=== PATIENT | male | born 1970 | race Caucasian/White ===

== ENCOUNTER 2022-05-14 20:33 | Emergency (ER) | payer OTHER ==
[~2022-05-14] VITALS: Ht 165.1 cm; Wt 77.1 kg
[2022-05-15] MEDS ORDERED: DICLOFENAC SODI75 MG PO (02:13)
== END 2022-05-15 02:57 | disposition home or self-care (01) ==
LOC: ER 20:33
DX: S01.91XA Laceration without foreign body of unspecified part of head, initial encounter (principal); X58.XXXA Exposure to other specified factors, initial encounter; Y93.9 Activity, unspecified; Y92.9 Unspecified place or not applicable; S62.101A Fracture of unspecified carpal bone, right wrist, initial encounter for closed fracture